=== PATIENT | female | born 1955 | race Caucasian/White ===

== ENCOUNTER 2017-10-28 08:27 | Emergency (ER) | payer OTHER ==
[2017-10-28] MEDS ORDERED: Acetaminophen/HYDROcodone 325-5 MG Tab PO ONE (09:04)
--- NOTE | 2017-10-28 09:12 | EDM.PDOC ---
ED HPI GENERAL MEDICAL PROBLEM - General Chief Complaint: Respiratory Problem Stated Complaint: CHEST CONGESTION AND COUGH Time Seen by Provider: 10/28/17 08:54 Source of Information: Reports: Patient, RN Notes Reviewed - History of Present Illness INITIAL COMMENTS - FREE TEXT/NARRATIVE: 62-year-old lady comes in with right lower chest discomfort. She's been ill for about 4-5 days with nasal and sinus congestion and quite severe cough. She has had some low-grade fever with that. She was seen at the clinic yesterday, influenza screen was negative. She was started on oral prednisone yesterday and also albuterol nebs. States that his helped her breathing. She states she does have history of COPD. Last evening and during the night she is developed some severe right lower chest pain with coughing and movement. She feels like she may have "cracked rib". She states it hurts so bad that "she cannot cough". The phlegm that she has been coughing up his been mostly clear. She states with the prednisone and albuterol nebs her breathing is better than it was yesterday. Right Lower Chest Pain Score (Numeric/FACES): 8 - Related Data Allergies Allergy/AdvReac Type Severity Reaction Status Date / Time No Known Allergies Allergy Verified 10/28/17 08:37 Home Meds: Home Meds Albuterol [Ventolin HFA] 1 hr INH ASDIRECTED PRN 10/28/17 [History] Doxycycline [Vibramycin] 100 mg PO Q12HR #14 tablet 10/28/17 [Rx] Lisinopril/Hydrochlorothiazide [Lisinopril-Hctz 20-25 mg Tab] 1 tab PO DAILY [History] Tiotropium [Spiriva Handihaler] 1 dose INH ASDIRECTED PRN 10/28/17 [History] Past Medical History HEENT History: Reports: Impaired Vision Cardiovascular History: Reports: Hypertension Respiratory History: Reports: COPD Social & Family History - Tobacco Use Smoking Status *Q: Former Smoker Used Tobacco, but Quit: Yes Month Tobacco Last Used: 5 years ago quit smoking - Caffeine Use Caffeine Use: Reports: Coffee - Recreational Drug Use Recreational Drug Use: No ED ROS GENERAL - Review of Systems Review Of Systems: See Below Constitutional: Reports: Fever (Gone) HEENT: Reports: Sinus Problem, Throat Pain Respiratory: Reports: Cough, Sputum (Scant, clear). Denies: Shortness of Breath (She continues to have nasal and sinus congestion), Wheezing GI/Abdominal: Denies: Abdominal Pain, Nausea, Vomiting Musculoskeletal: Reports: Other (Right lower anterior chest wall pain) Skin: Reports: No Symptoms Neurological: Reports: No Symptoms ED EXAM, GENERAL - Physical Exam Exam: See Below General Appearance: Alert, Mild Distress, Other (Patient noted to have quite severe pain with attempted coughing and even with motion right lower anterior chest) Nose: Normal Inspection Throat/Mouth: Normal Inspection, Normal Oropharynx Head: No: Facial Swelling Neck: Supple, Full Range of Motion Respiratory/Chest: No Respiratory Distress, Lungs Clear, Other (Tender right lower anterior chest right below the right breast). No: Rhonchi, Wheezing Cardiovascular: Regular Rate, Rhythm Extremities: Normal Inspection, Normal Range of Motion Neurological: Alert, Oriented, No Motor/Sensory Deficits Skin Exam: Warm, Dry, Normal Color Course - Vital Signs Last Recorded V/S: Last Vital Signs Temp 97.8 F 10/28/17 08:37 Pulse 72 10/28/17 08:37 Resp 13 10/28/17 08:37 BP 150/89 H 10/28/17 08:37 Pulse Ox 95 10/28/17 08:37 - Orders/Labs/Meds Meds: Medications Discontinued Medications Generic Name Dose Route Start Last Admin Trade Name Jailene PRN Reason Stop Dose Admin Hydrocodone Bitart/Acetaminophen 1 tab 10/28/17 09:04 10/28/17 09:13 [place] 325-5 Mg PO 10/28/17 09:05 1 tab ONETIME ONE Administration - Re-Assessments/Exams Free Text/Narrative Re-Assessment/Exam: 10/28/17 09:19 We have given her hydrocodone 03/06/25 to help her for the pain which is really primarily why she is here. Not going to do rib x-rays. This may be severe muscle strain or she may have fractured a rib coughing. With her history of COPD she is high risk for pneumonia as a complication of her current upper respiratory infection. I do not hear that or see signs or symptoms of that at this time. Or for I am going to start her on doxycycline 100 mg twice daily for 1 week. continue the prednisone and also continue the albuterol neb treatments. Shee is afebrile at this time. Sats are good, better than yesterday at the clinic when she was running around 91. Therefore I will not order a chest x-ray at this time. Departure - Departure Time of Disposition: 09:05 Disposition: Home, Self-Care 01 Condition: Fair Clinical Impression: COPD exacerbation, Anterior chest wall pain - Discharge Information Prescriptions: Doxycycline [Vibramycin] 100 mg PO Q12HR #14 tablet Instructions: Chronic Obstructive Pulmonary Disease Exacerbation, [id number] , Chest Wall Pain, [id number] Referrals: Essie Tran GLOVE BRUSHER [Primary Care Provider] - Forms: ED Department Discharge Additional Instructions: Continue prednisone as prescribed, albuterol neb treatments. Steam can also be very helpful to help loosen things up. Tylenol for mild to moderate discomfort or hydrocodone if needed for more severe pain. You have been given 1 tablet hydrocodone while here in the ED. You can take that every 6-8 hours as needed for severe pain. Do not take Tylenol and hydrocodone at the same time. Do not not drive when taking hydrocodone. Start the doxycycline antibiotic tomorrow as prescribed 100 mg twice daily for 1 week. Follow-up clinic as needed, return to ED as needed if symptoms worsening in any way.
== END 2017-10-28 09:28 | disposition home or self-care (01) ==
LOC: JD.ED 08:27
DX: J44.1 Chronic obstructive pulmonary disease with (acute) exacerbation (principal); Z87.891 Personal history of nicotine dependence
CPT/HCPCS: 99283; A9270

== ENCOUNTER 2021-12-26 16:12 | Emergency (ER) | payer MEDICARE ==
[2021-12-26] MEDS ORDERED: Heparin Sodium 5,000 Units/ML Vial IVPUSH ONE (19:29)
[2021-12-26] MEDS ORDERED: Heparin Sodium/D5W 25,000 UNITS/500 ML BAG IV SCH (19:30)
== END 2021-12-26 20:14 ==
LOC: JD.ED 16:12
DX: I21.4 Non-ST elevation (NSTEMI) myocardial infarction (principal); I10 Essential (primary) hypertension; J44.9 Chronic obstructive pulmonary disease, unspecified; Z86.16 Personal history of COVID-19; Z79.899 Other long term (current) drug therapy
CPT/HCPCS: 36415; 71046; 80053; 83880; 84484; 85025; 85379; 85730; 86140; 93005; 96365; 99285; J1644